=== PATIENT | female | born 1940 | race Caucasian/White ===

== ENCOUNTER 2024-12-31 17:18 | Emergency (ER) | payer MEDICARE, MEDICAID ==
[~2024-12-31] VITALS: Ht 157.5 cm; Wt 59.1 kg
[~2024-12-31 17:18] MED LIST: ACET-3209 PO; ATOR20TA PO; BENA10TA74 PO; FERR47.53 PO; MAGN-64 PO; MELA3TAB39 PO; METH500T4 PO; NA P133E4 RC; OMEP-84 PO; RISP0.256 PO; VITC500T PO
[2024-12-31 17:21] VITALS: BP 132/58; PULSE 99; TEMP 98.2; O2SAT 92
--- NOTE | 2024-12-31 17:31 | Physician Documentation ---
History of Present Illness ~ Stated Complaint: FELL Time Seen by MD: 17:24 OK to notify your PCP?: Yes Primary Medical Doctor: MERARY Source: patient Mode of Arrival: POV Exam Limitations: no limitations HPI 84-year-old female presents from a long-term with her sharepoint developer after having a fall today. She was walking on the tile floor in about to go put her plate up in the kitchen and tripped and fell. She has swelling and bruising to her right zygomatic process and a small laceration to her right upper eyelid to her eyebrow. No loss of consciousness, no blood thinners. Patient sharepoint developer denies any altered mental status and states that he brought her in for precautionary measures only. Patient is non communicative and communication was carried out with the caregiver. They have no other concern or complaint at this time. Caregiver appears to have the vested best interest of the patient in mind. Medication Reconciliation Allergies: Coded Allergies: No Known Allergies (Unverified , 07/01/12) Scheduled Ascorbic Acid* (Vitamin C*), 1 TAB PO DAILY, (Reported) Atorvastatin Calcium* (Lipitor*), 20 MG PO HS, (Reported) Benazepril Hcl* (Lotensin*), 10 MG PO DAILY, (Reported) Ferrous Sulfate (SLOW FE tablet), 325 MG PO DAILY, (Reported) Magnesium Hydroxide (Milk Of Magnesia), 400 MG PO PRN, (Reported) Melatonin (Melatonin), 1 TABLET PO HS, (Reported) Methylcellulose (Citrucel), MG PO BID, (Reported) Na Phos,M-B/Na Phos,Di-Ba* (Fleet's Enema*), 1 BOTTLE RC DAILY, (Reported) Omeprazole* (Prilosec*), 20 MG PO DAILY, (Reported) Risperidone (Risperdal), 1 MG PO HS, (Reported) Scheduled PRN Acetaminophen (Tylenol), 650 MG PO Q6H PRN, (Reported) Review of Systems All Other Systems at this time: Reviewed and Negative Constitutional: Denies: chills, fever, weakness Eyes: Denies: pain, blurred vision ENT: Denies: ear pain, nose pain, throat pain, mouth pain Respiratory: Denies: cough, shortness of breath Cardiovascular: Denies: chest pain, palpitations Gastrointestinal: Denies: abdominal pain, nausea, vomiting Genitourinary: Denies: burning, dysuria Female Genitalia: Denies: vaginal discharge, pelvic pain Neurological: Denies: headache, dizziness Musculoskeletal: Denies: pain, swelling Integumentary: Denies: rash, lesions Allergic/Immunologic: Denies: hives, itching Hematologic/Lymphatic: Denies: no symptoms reported Psychiatric: Denies: depression, anxiety Physical Exam Vital Signs: RN Vital Signs have been reviewed: Yes Pulse Oximetry Reflects: adequate oxygenation Physical Exam General: Alert, no apparent distress. HEENT: PERRL, EOMI, no injection, moist mucous membranes. Face: Patient does have very minimal swelling and very mild ecchymosis over the right zygomatic arch and very small scratch over the right upper eyelid that does not appear to need any type of suturing at this time. Neck: Full range of motion. Respiratory: Lungs clear, no respiratory distress. Chest: No accessory muscle use. Cardiovascular: Regular rate and rhythm, no murmurs. Gastrointestinal: nondistended. Extremities: Normal range of motion, no deformity. Neurologic: Acting appropriately at her baseline per caregiver Skin: Small laceration under right eyebrow, bleeding controlled. edema and ecchymosis to right zygomatic process. Progress Results/Orders Results/Orders Vital Signs 12/31/24 12/31/24 17:21 17:44 Temp 98.2 Pulse 99 Resp 17 14 B/P (MAP) 132/58 Pulse Ox 92 O2 Flow Rate 0 Medical Decision Making Findings 84-year-old female presents from a long-term with her sharepoint developer after having a fall today. She was walking on the tile floor in about to go put her plate up in the kitchen and tripped and fell. She has swelling and bruising to her right zygomatic process and a small laceration to her right upper eyelid to her eyebrow. No loss of consciousness, no blood thinners. Patient sharepoint developer denies any altered mental status and states that he brought her in for precautionary measures only. Patient is non communicative and communication was carried out with the caregiver. They have no other concern or complaint at this time. Caregiver appears to have the vested best interest of the patient in mind. Patient was seen today with caregiver and her history and physical exam findings are benign. Shared decision-making utilized with caregiver today who patient caregiver and I agree that further imaging with CT scan is not warranted at this time given the mechanism of action and physical exam findings. Patient will be closely monitored tonight tomorrow and they will follow up with primary care in 2-5 days if no better as needed sooner. Return to ED with any worsening, concerning or changing symptoms. Departure Disposition: HOME / SELF CARE / HOMELESS Impression: Primary Impression: Fall Qualified Codes: W19.XXXA - Unspecified fall, initial encounter Additional Impression: Bruise Condition: Stable Discharge Instructions: Fall Prevention in the Home, Adult, [id number] Additional Instructions: Patient was seen today with caregiver and her history and physical exam findings are benign. Shared decision-making utilized with caregiver today who patient caregiver and I agree that further imaging with CT scan is not warranted at this time given the mechanism of action and physical exam findings. Patient will be closely monitored tonight tomorrow and they will follow up with primary care in 2-5 days if no better as needed sooner. Return to ED with any worsening, concerning or changing symptoms. Referrals: NO PRIMARY CARE PROVIDER (PCP) Additional Comment Medical Screen Exam This patient recieved a medical screening examination. After reviewing the individual's medical complaints with presenting symptoms and performing an appropriate physical examination, it was determined that no immediate life- threatening emergency medical condition is present. This individual is also not a women having contractions. Signature Scribe Signature: No scribe Attestation: No scribe CARIN LEONARD BAND SEWER Dec 31, 2024 17:31 DONTAE WEAVER PAC Dec 31, 2024 18:16
[2024-12-31 17:44] VITALS: RESP 14
== END 2024-12-31 18:32 | disposition home or self-care (01) ==
LOC: ER 17:18
DX: S01.111A Laceration without foreign body of right eyelid and periocular area, initial encounter (principal); W01.0XXA Fall on same level from slipping, tripping and stumbling without subsequent striking against object, initial encounter; Y93.01 Activity, walking, marching and hiking; Y92.89 Other specified places as the place of occurrence of the external cause; Y99.8 Other external cause status
CPT/HCPCS: 99284